=== PATIENT | female | born 1960 | race African-American/Black ===

== ENCOUNTER 2019-03-21 09:56 | Outpatient (CLI) | payer OTHER, SELFPAY ==
--- NOTE | ~2019-03-21 | MM_ITS ---
EXAMINATION: MM screening [facility] BI w [facility] HISTORY: Screening mammogram TECHNIQUE: Craniocaudal and mediolateral oblique 3-D tomosynthesis images were obtained and synthetic 2-D images were generated. CAD analysis was submitted and interpreted. COMPARISON: 03/08/2017, 07/20/2010 BREAST PARENCHYMAL COMPOSITION: The breasts are almost entirely fatty. FINDINGS: Stable masses in the upper outer quadrant of the right breast are considered benign given t he lack of interval change. There is no evidence of suspicious mass, calcification, or architectural distortion to suggest malignancy in either breast. There has been no suspicious interval change. IMPRESSION: 1. No mammographic evidence of malignancy. 2. Recommend routine screening mammography in one year. BI-RADS Category 2: Benign finding(s). Reviewed, dictated and finalized at location A. ING FLOORWORKER
== END 2019-03-21 09:57 | disposition home or self-care (01) ==
PROVIDERS: PCP Emergency Medicine; Visit Provider Emergency Medicine
DX: Z12.31 Encounter for screening mammogram for malignant neoplasm of breast (principal)
CPT/HCPCS: 77063; 77067

== ENCOUNTER 2019-05-01 08:47 | Outpatient (CLI) | payer OTHER, SELFPAY ==
--- NOTE | ~2019-05-01 | US_ITS ---
EXAMINATION: US soft tissue lower back DATE: 05/01/2019 09:25 INDICATION: Right lower back mass. TECHNIQUE: Multiple grayscale and Doppler ultrasound images of the right lower back were obtained. COMPARISON: None FINDINGS: There is no abnormal mass in the patient's area of concern in the right lower back. IMPRESSION: 1. No abnormal mass in the patient's area of concern in the right lower back. Reviewed, dictated and finalized at location A.
== END 2019-05-01 08:48 | disposition home or self-care (01) ==
PROVIDERS: PCP Emergency Medicine; Visit Provider Emergency Medicine
DX: R22.2 Localized swelling, mass and lump, trunk (principal)
CPT/HCPCS: 76705

== ENCOUNTER 2019-08-02 08:44 | Outpatient (CLI) | payer OTHER, SELFPAY ==
[2019-08-02 09:00] LABS: Hematocrit 43.2 % (37.0-47.0); Hemoglobin 13.9 g/dL (12.0-15.0)
[2019-08-02 09:13] LABS: Blood Urea Nitrogen 16 mg/dL (7-17); Calcium 9.9 mg/dL (8.4-10.2); Carbon Dioxide 30 mmol/L (22-30); Chloride 103 mmol/L (98-107); Estimated Glomerular Filt Rate > 60; Glucose 104 mg/dL (65-105); Potassium 4.2 mmol/L (3.4-5.0); Sodium 138 mmol/L (137-145)
== END 2019-08-02 08:45 | disposition home or self-care (01) ==
LOC: ANHSURGERY 08:45
PROVIDERS: Anesthesiology; PCP Emergency Medicine; Visit Provider Surgery
DX: Z51.81 Encounter for therapeutic drug level monitoring (principal); D64.9 Anemia, unspecified; Z79.899 Other long term (current) drug therapy
CPT/HCPCS: 36415; 80048; 85014; 85018

== ENCOUNTER 2019-08-05 00:45 | Outpatient (CLI) | payer OTHER, SELFPAY ==
[2019-08-05 17:00] LABS: SARS-CoV-2 RNA PCR Negative
== END 2019-08-05 00:46 | disposition home or self-care (01) ==
LOC: ANHCOVIDDT 00:45
PROVIDERS: PCP Emergency Medicine; Visit Provider Surgery
DX: Z01.818 Encounter for other preprocedural examination (principal); Z11.59 Encounter for screening for other viral diseases
CPT/HCPCS: 87635; C9803; U0003

== ENCOUNTER 2019-08-07 01:34 | Day surgery (SDC) | payer OTHER, SELFPAY ==
[2019-07-25 11:43] VITALS: BMI 31.4
[2019-08-07 10:53] VITALS: BP 128/68; PULSE 80; RESP 20; TEMP 36.4; O2SAT 100
[2019-08-07] MEDS: LACTATED RINGERS 1,000 ML 30 ML IV CONT (11:05)
--- NOTE | 2019-08-07 11:28 | WPDANESEPPF ---
Anes - Initial Pre Proc Eval Procedure: Operation Date: 08/07/19 12:00 Proposed Procedures p Excisional Biopsy Right Lower Back Mass - Radha Francois MD Date/Time: 08/07/19 11:28 Surgeon: Radha Francois MD Pre Op Diagnosis: Right lower back mass Patient Data Age: 58 Gender: F Height: 5 ft 4 in Weight: 83.01 kg Allergies Allergy/AdvReac Type Severity Reaction Status Date / Time codeine Allergy Mild UNKNOWN Verified 08/07/19 11:21 REACTION milk Allergy Mild Gastrointestinal Verified 08/07/19 11:21 Upset Sulfa (Sulfonamide Allergy Mild REDNESS, Verified 08/07/19 11:21 Antibiotics) BURNING, ITCHING celecoxib Allergy Unknown Hives Verified 08/07/19 11:21 Penicillins AdvReac Mild YEAST Verified 08/07/19 11:21 INFECTION ANTIBACTERIAL SOAP Allergy Rash Uncoded 08/07/19 11:21 Home Medications Medication Instructions Recorded Confirmed Type lisinopril 10 1 tablet PO DAILY 07/09/19 08/07/19 History mg-hydrochlorothiazide 12.5 mg tablet pravastatin 40 mg tablet 40 mg PO DAILY 07/09/19 08/07/19 History diphenhydramine HCl [Benadryl] 25 mg PO BID 07/25/19 08/07/19 History ergocalciferol (vitamin D2) 50,000 unit PO WEEKLY 07/25/19 08/07/19 History ferrous sulfate [iron] 325 mg PO DAILY 07/25/19 08/07/19 History Patient hx anesthesia problems: none Family hx anesthesia problems: none PMFSH Past Medical History Medical History Hyperlipidemia Hypertension Surgical History Surgical History History of appendectomy History of X2 1981, 1982 History of colonoscopy 2018 Family History Family History Mother Hypertension Sleep apnea Social History Social History Smoking packs per day: 0.50 Smoking cigarettes per day: 10.0 Years smoked: 30 Smoking pack-years: 15.00 Smoking status: Current some day smoker Alcohol intake: current Additional occupation/education comments: sales Anes - Eval Final PreProcedure Day of Procedure 08/07/19 11:28 Patient weight: obese Heart: regular rate and rhythm Lungs: clear to auscultation Airway: Mallampati scale class II Neurological: alert and oriented Last oral intake: >/= 8 hours ASA classification: III Emergent: no Anesthetic plan: proceed Anesthesia type and monitoring: general GIVS and standard monitoring Informed Consent: The patient's anesthetic plan and its attendant risks and benefits were discussed with the patient/family/POA. Questions were solicited and answers provided to the satisfaction of the patient/family/POA.
--- NOTE | 2019-08-07 11:38 | WPDHPUPDATE1 ---
History and Physical Update Update Date/Time: 08/07/19 11:38 History and Physical has been reviewed, including an updated exam of the patient. There are NO changes in the patient's condition. Risks, benefits, and alternatives have been discussed and questions answered. Patient agrees to proceed with procedure.
[2019-08-07] MEDS: ceFAZolin 2 GM/D5W 50 ML 2 GM/50 ML BAG IVPB (12:17)
[2019-08-07 12:45] VITALS: BP 104/72; PULSE 81; RESP 18; O2SAT 97
--- NOTE | 2019-08-07 12:48 | PM.PROC ---
Procedure Note - Detailed Date of procedure: 08/07/19 Pre-op diagnosis: Right lower back mass Post-op diagnosis: same Procedure performed: Excisional biopsy right flank mass measuring approximately 7 x 5 cm Description of procedure: the patient was taken to the operating room placed in the supine position. After adequate induction general anesthesia, the patient was prepped and draped in the normal sterile fashion. A time-out was done to verify the patient's identity as well as the procedure being performed. I began by localizing the area over the mass. Once the area was localized, I made approximately 5 cm incision over the mass. This was carried down through the dermis into the subcutaneous tissue. The entirety of the mass was noted to be within the subcutaneous tissue. Upon visual inspection, this looked to be a multi lobular lipoma. I was able to excise this mass in full, which was noted to be approximately 7 x 5 cm. This was all located within the subcutaneous tissue and did not violate the underlying fascia or muscle. I then copiously irrigated the cavity and gained hemostasis with the Bovie cautery. I then closed the subcutaneous tissue with 3.0 Vicryl suture. The skin was closed with 4 Monocryl subcuticular suture. The patient tolerated the procedure well, was alert and awake in the operating room postoperative. She will be sent to the recovery room in stable condition. Implants: None Anesthesia: MAC Surgeon: Radha Francois MD Estimated blood loss (mL): 5 Drains: No Packing: No Pathology: yes Complications: No immediate complications Condition: stable Disposition: PACU Findings: multi lobular subcutaneous mass
[2019-08-07 13:15] VITALS: BP 112/70; PULSE 76; RESP 18
[2019-08-07 13:45] VITALS: BP 115/67; PULSE 82; RESP 18; O2SAT 97
== END 2019-08-07 13:51 | disposition home or self-care (01) ==
PROVIDERS: PCP Emergency Medicine; Visit Provider Surgery
PROC: (CPT 21931; principal; 2019-08-07 12:00)
DX: D17.1 Benign lipomatous neoplasm of skin and subcutaneous tissue of trunk (principal); I10 Essential (primary) hypertension; E78.5 Hyperlipidemia, unspecified; F17.210 Nicotine dependence, cigarettes, uncomplicated; E66.9 Obesity, unspecified; Z68.32 Body mass index [BMI] 32.0-32.9, adult
CPT/HCPCS: 21931; 88304; J0690; J2250; J2704; J7120

== ENCOUNTER 2019-08-21 08:00 | Outpatient (NON) | payer OTHER, SELFPAY ==
[2019-08-21 19:18] LABS: SARS-CoV-2 RNA PCR Negative
== END 2019-08-21 08:01 ==
PROVIDERS: PCP Emergency Medicine; Visit Provider Emergency Medicine
DX: J06.9 Acute upper respiratory infection, unspecified (principal); Z20.828 Contact with and (suspected) exposure to other viral communicable diseases
CPT/HCPCS: 87635; C9803; U0003

== ENCOUNTER 2020-11-19 10:09 | Emergency (ER) | payer OTHER, SELFPAY ==
[2020-11-19] VITALS (7 sets, daily range): BP systolic 139–172; BP diastolic 80–87; PULSE 81–100; RESP 14–25; TEMP 36.8–37; O2SAT 98–100
--- NOTE | ~2020-11-19 | XR_ITS ---
EXAMINATION: XR chest 2V EXAM DATE: 11/19/2020 10:27 INDICATION: chest pain, shortness of breath, cough. Symptoms for days. TECHNIQUE: Frontal and lateral projections of the chest obtained and reviewed. There is no prior shahnaz dy for comparison. FINDINGS: The lungs are clear. There are no pleural effusions. The cardiomediastinal silhouette is within normal limits. There is no pneumothorax suspected. The bones and soft tissues are unremarkab le. IMPRESSION: No acute cardiopulmonary findings. Reviewed, dictated and finalized at location A.
--- NOTE | 2020-11-19 10:16 | ECG_ITS ---
Measurements Intervals [place] Rate: 95 P: 40 CA: 163 QRS: -23 QRSD: 74 T: 14 QT: 341 QTc: 430 Interpretive Statements SINUS RHYTHM DELAYED PRECORDIAL R/S TRANSITION BORDERLINE ECG Electronically Signed On 11-19-2020 11:18:02 CDT by Cristobal Mejia D.O.
[2020-11-19 10:50] LABS: Basophils Absolute Auto 0.1 K/mm3 (0.0-0.1); Basophils Percent Auto 0.8 % (0.2-1.2); Eosinophils Absolute Auto 0.3 K/mm3 (0-0.3); Eosinophils Percent Auto 4.1 % (0-4.4); Hematocrit 42.4 % (37.0-47.0); Immature Granulocyte Absolute 0.04 K/mm3 (0.00-0.031); Immature Granulocyte Percent A 0.6 % (0-0.5); Lymphocytes Absolute Auto 1.51 K/mm3 (0.9-3.2); Lymphocytes Percent Auto 21.4 % (18.3-44.2); Mean Corpuscular Hemoglobin 28.8 pg (26-34); Mean Corpuscular Volume 87.2 fl (80-100); Mean Platelet Volume 9.1 fl (7.4-10.4); Monocytes Absolute Auto 0.7 K/mm3 (0.1-0.6); Monocytes Percent Auto 9.3 % (2.6-8.5); Neutrophils Absolute Auto 4.5 K/mm3 (1.3-6.7); Neutrophils Percent Auto 63.8 % (45.5-73.1); Platelet Count Result 229 k/mm3 (150-375); Red Blood Count 4.86 M/mm3 (4.2-5.4); Red Cell Distribution Width 14.4 % (11.5-14.5); White Blood Count 7.1 K/mm3 (4.5-10.0)
[2020-11-19 11:03] LABS: Anion Gap 8 mmol/L (8-16); Blood Urea Nitrogen 15 mg/dL (7-17); Calcium 9.3 mg/dL (8.4-10.2); Carbon Dioxide 26 mmol/L (22-30); Chloride 107 mmol/L (98-107); Estimated CRCL calculation 64 ml/min; Estimated Glomerular Filt Rate > 60; Glucose 107 mg/dL (65-110); Potassium 3.9 mmol/L (3.4-5.0); Sodium 141 mmol/L (137-145)
[2020-11-19] MEDS: ACETAMINOPHEN 325 MG TABLET 650 MG PO (11:34)
[2020-11-19] MEDS: ALBUTEROL SULFATE NEB 2.5 MG/0.5 ML INH 5 MG INHALATION (11:46)
[2020-11-19] MEDS: IPRATROPIUM BR 0.02% INH SOLN 0.5 MG/2.5 ML VIAL INHALATION (11:47)
--- NOTE | 2020-11-19 12:32 | ED.GENADULT ---
HPI - General Adult General Chief complaint: Shortness of Breath/Dyspnea Stated complaint: CP & SOB Time Seen by Provider: 11/19/20 10:17 History of Present Illness HPI narrative: Patient is a 60-year-old female who presents ER with shortness of breath and chest pain. Patient reports has been having runny nose with sore throat and productive cough. Mucus is gone from clear to yellow. Because she has been coughing she has developed discomfort beneath her left breast. Its worse with deep breath and coughing. No hemoptysis. No lower extremity swelling. Symptoms ongoing for 5 days. No loss of taste or smell. She has had poor appetite. Related Data Home Medications Medication Instructions Recorded Confirmed lisinopril 10 1 tablet PO DAILY 07/09/19 08/07/19 mg-hydrochlorothiazide 12.5 mg tablet pravastatin 40 mg tablet 40 mg PO DAILY 07/09/19 08/07/19 diphenhydramine HCl [Benadryl] 25 mg PO BID 07/25/19 08/07/19 ergocalciferol (vitamin D2) 50,000 unit PO WEEKLY 07/25/19 08/07/19 ferrous sulfate [iron] 325 mg PO DAILY 07/25/19 08/07/19 Allergies Allergy/AdvReac Type Severity Reaction Status Date / Time codeine Allergy Mild UNKNOWN Verified 08/20/19 13:37 REACTION milk Allergy Mild Gastrointestinal Verified 08/20/19 13:37 Upset Sulfa (Sulfonamide Allergy Mild REDNESS, Verified 08/20/19 13:37 Antibiotics) BURNING, ITCHING celecoxib Allergy Unknown Hives Verified 08/20/19 13:37 Penicillins AdvReac Mild YEAST Verified 08/20/19 13:37 INFECTION ANTIBACTERIAL SOAP Allergy Rash Uncoded 08/07/19 11:21 Review of Systems Review of Systems: All systems reviewed & are unremarkable except as noted in HPI and below Constitutional: Constitutional: Denies chills, Reports fatigue and Denies fever(s) ENT: Reports nasal congestion and Reports sore throat Cardiovascular: Cardiovascular: Reports chest pain, Denies rapid heart rate and Denies radiating jaw, neck or arm pain Respiratory: Respiratory: Reports chest congestion, Reports cough, Denies dyspnea and Denies wheezing Gastrointestinal: Gastrointestinal: Denies abdominal pain, Denies nausea and Denies vomiting [facility] Past Medical History Medical History (Updated 11/19/20 @ 12:40 by Abundio Welsh MD) Hyperlipidemia Hypertension Surgical History Surgical History (Reviewed 08/20/19 @ 13:38 by Marquita Hamilton [facility]) History of appendectomy History of X2 1981, 1982 History of colonoscopy 2018 Family History Family History Mother Hypertension Sleep apnea Social History Social History (Reviewed 08/20/19 @ 13:38 by Marquita Hamilton [facility] [address]) Smoking packs per day: 0.50 Smoking cigarettes per day: 10.0 Years smoked: 30 Smoking pack-years: 15.00 Smoking status: Current some day smoker Alcohol intake: current Additional occupation/education comments: sales Exam Narrative: GENERAL: Well-appearing, well-nourished, and in no acute distress. HEAD: Normocephalic, atraumatic. ENT: Mucous membranes moist. CHEST: Clear to auscultation. No respiratory distress. HEART: Regular rate and rhythm. Normal peripheral pulses. ABDOMEN: Soft, nontender, nondistended. EXTREMITIES: Normal range of motion. No edema. NEURO: Alert and oriented x3. PSYCH: Normal mood and affect. Course Course Emergency Course: Patient informed of results. Feels better with nebulizer treatment. Discharge with steroids and albuterol. Vital Signs Vital signs: Vital Signs Temperature 98.3 F 11/19/20 10:12 Pulse Rate 100 11/19/20 10:12 Respiratory Rate 14 11/19/20 10:12 Blood Pressure 172/86 H 11/19/20 10:12 Pulse Oximetry 98 11/19/20 10:12 Temperature 98.3 F 11/19/20 10:12 Pulse Rate 87 11/19/20 11:59 Respiratory Rate 20 11/19/20 11:59 Blood Pressure 143/87 H 11/19/20 11:34 Pulse Oximetry 99 11/19/20 11:34 Medical Decision Making Vital Signs
== END 2020-11-19 12:55 | disposition home or self-care (01) ==
PROVIDERS: Emergency Provider Emergency Medicine; PCP Emergency Medicine
DX: J40 Bronchitis, not specified as acute or chronic (principal); E78.5 Hyperlipidemia, unspecified; I10 Essential (primary) hypertension; F17.210 Nicotine dependence, cigarettes, uncomplicated; R94.31 Abnormal electrocardiogram [ECG] [EKG]
CPT/HCPCS: 36415; 71046; 80048; 85025; 93005; 94640; 99284; A9270

== ENCOUNTER 2021-04-21 08:50 | Outpatient (CLI) | payer OTHER, SELFPAY ==
--- NOTE | ~2021-04-21 | CT_ITS ---
EXAMINATION: CT lung screening DATE: 04/21/2021 09:24 INDICATION: Personal history of tobacco dependence TECHNIQUE: Computed tomography (CT) of the chest was performed without intravenous contrast. The dose -length product was 143.33 mGy-cm. Automated exposure control and iterative reconstruction technique were employed. COMPARISON: Chest x-ray dated 11/19/2020 FINDINGS: Heart size is normal. No thoracic lymphadenopathy. No significant pleural or pericardial ef fusion. No soft tissue abnormality. The upper abdomen is unremarkable. No evidence for aortic aneurys m. There is mild atherosclerosis. There are a few small 2-3 mm nodules in the upper lobes. There is a subsolid 4 mm nodule right upper lobe, image 18. No endobronchial lesions. No pneumothorax. There is a 4 mm right lower lobe nodule, image 95. Mild thoracic spondylosis. IMPRESSION: 1. Lung-RADS category 2: Benign appearance or behavior. Continue annual screening with noncontrast lo w-dose chest CT in 12 months. Reviewed, dictated and finalized at location A. CAL TECHNOLOGIST PRN IMPRESSION: 1. Lung-RADS category 2: Benign appearance or behavior. Continue annual screeni ng with noncontrast low-dose chest CT in 12 months.
== END 2021-04-21 08:51 | disposition home or self-care (01) ==
LOC: ANHIMG 08:55
PROVIDERS: PCP Emergency Medicine; Visit Provider Emergency Medicine
DX: Z12.2 Encounter for screening for malignant neoplasm of respiratory organs (principal); Z87.891 Personal history of nicotine dependence
CPT/HCPCS: 71271

== ENCOUNTER 2022-09-09 08:40 | Outpatient (CLI) | payer OTHER, SELFPAY ==
--- NOTE | ~2022-09-09 | MM_ITS ---
EXAMINATION: MM screening [facility] w [facility] HISTORY: Screening TECHNIQUE: Craniocaudal and mediolateral oblique 3-D tomosynthesis images were obtained and synthetic 2-D images were generated. CAD analysis was submitted and interpreted. COMPARISON: Comparison to multiple prior studies sequentially, with oldest reviewed study dated 03/08. BREAST PARENCHYMAL COMPOSITION: There are scattered areas of fibroglandular density. FINDINGS: There is no evidence of suspicious mass, calcification, or architectural distortion to sugg est malignancy in either breast. There has been no suspicious interval change. IMPRESSION: 1. No mammographic evidence of malignancy. 2. Recommend routine screening mammography in one year. BI-RADS Category 1: Negative Reviewed, dictated and finalized at location A.
== END 2022-09-09 08:41 | disposition home or self-care (01) ==
LOC: ANHIMG 08:42
PROVIDERS: PCP Emergency Medicine; Visit Provider Emergency Medicine
DX: Z12.31 Encounter for screening mammogram for malignant neoplasm of breast (principal)
CPT/HCPCS: 77063; 77067